=== PATIENT | male | born 2000 | race African-American/Black ===

== ENCOUNTER 2019-07-04 17:35 | Emergency (ER) | payer OTHER ==
[~2019-07-04] VITALS: Ht 182.9 cm; Wt 68.0 kg
[2019-07-04 18:07] LABS: URINE BLOOD NEGATIVE (Negative); URINE CLARITY CLEAR; URINE COLOR YELLOW; URINE GLUCOSE-RANDOM NEGATIVE (Negative); URINE KETONES 1+ (Negative); URINE LEUKOCYTES-REFLEX NEGATIVE (Negative); URINE NITRITE-REFLEX NEGATIVE (Negative); URINE PROTEIN 1+ (Negative); URINE SPECIFIC GRAVITY 1.025 (1.005-1.030); URINE UROBILINOGEN 0.2 E.U./dl (0.2-1.0)
[2019-07-04 18:10] LABS: ICTOTEST (BILI CONFIRMATORY) Negative (Negative); URINE BILIRUBIN 1+ (Negative)
[2019-07-04 18:20] LABS: HEMATOCRIT 49.4 % (42.0-52.0); MCHC 34.4 g/dL (28.0-37.0); MCV 87.2 fL (80.0-100.0); MPV 8.9 fl. (7.2-11.1); NUCLEATED RBCS 0 /100WBC; PLATELET COUNT* 217 thou/uL (150-400); RBC 5.67 mil/uL (4.50-6.00); RDW-CV 12.7 % (10.5-14.5); WBC 11.8 thou/uL (4.0-11.0)
[2019-07-04 18:37] LABS: CALCIUM 9.4 mg/dL (8.5-10.1); CREATININE 1.3 mg/dL (0.6-1.3); POTASSIUM 4.1 mmol/L (3.5-5.1)
[2019-07-04 18:42] LABS: ALBUMIN 4.4 g/dL (3.4-5.0); TOTAL BILIRUBIN 1.4 mg/dL (<0.1-1.0); TOTAL PROTEIN 8.1 g/dL (6.4-8.2)
[2019-07-04 18:47] LABS: ABSOLUTE EOSINOPHILS 0.1 thou/uL (0.0-0.7); ABSOLUTE LYMPHOCYTES 0.4 thou/uL (0.8-5.3); ABSOLUTE MONOCYTES 1.2 thou/uL (0.0-1.2); ABSOLUTE NEUTROPHILS 10.1 thou/uL (1.6-8.1); PLATELET ESTIMATE ADEQUATE
[2019-07-04] MEDS ORDERED: BENTYL 20 MG TA20 M1 PO (18:59)
[2019-07-04] MEDS ORDERED: ONDANSETRON HCL4 M2 PO (18:59)
[2019-07-04 19:57] VITALS: BP 116/63
== END 2019-07-04 20:08 | disposition home or self-care (01) ==
LOC: M.ERS 17:35
PROVIDERS: Nurse Practitioner Family
DX: K52.9 Noninfective gastroenteritis and colitis, unspecified (principal)